=== PATIENT | female | born 1980 | race Caucasian/White ===

== ENCOUNTER 2019-12-19 17:18 | Emergency (ER) | payer OTHER, SELFPAY ==
[2019-12-19 17:30] VITALS: BP 149/85; PULSE 79; RESP 16; TEMP 36.8; O2SAT 100
[2019-12-19] MEDS: LIDO 1%/SOD BICARB 8.4% (10ML) 10 ML SYRINGE INJ (17:35)
[2019-12-19] MEDS: BACITRACIN OINT 0.9 GM PCKT 1 APPLIC TOP (17:36)
[2019-12-19] MEDS: TET,DIPH,PERTUSS(ACELL),VAC/PF 0.5 ML SYRINGE IM (18:48)
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
[2019-12-19 19:10] VITALS: BP 130/80; PULSE 74; RESP 16; O2SAT 97
== END 2019-12-19 19:11 | disposition home or self-care (01) ==
PROVIDERS: Emergency Provider Nurse Practitioner Family; PCP Student in an Organized Health Care Education/Training Program
DX: S01.112A Laceration without foreign body of left eyelid and periocular area, initial encounter (principal); W22.8XXA Striking against or struck by other objects, initial encounter; Y93.53 Activity, golf; Z23 Encounter for immunization
CPT/HCPCS: 12011; 90471; 99283; 99284; 90715

== ENCOUNTER → 2020-12-13 09:06 | Outpatient (CLI) | payer OTHER, SELFPAY ==
[2020-12-13] MEDS: COVID-19 VACC, Ad26(JANSSEN)/PF 0.5 ML IM (09:12)
== END ==
PROVIDERS: PCP Student in an Organized Health Care Education/Training Program; Visit Provider Internal Medicine
DX: Z23 Encounter for immunization (principal)
CPT/HCPCS: 0031A; 91303

== ENCOUNTER → 2021-04-03 09:30 | Outpatient (CLI) | payer OTHER, SELFPAY ==
--- NOTE | 2021-04-03 09:31 | DI.US.S_ITS ---
LIMITED ULTRASOUND OF LEFT BREAST: 04/03/2021 CLINICAL: Palpable left breast lump. Comparison is made to exam dated: 04/03/2021 [facility]. Real-time ultrasound of the left breast 1-2 o'clock region was performed on the area of interest. No discrete cystic or solid mass lesion identified in the area of palpable abnormality. IMPRESSION: NEGATIVE There is no sonographic evidence of malignancy. There are no abnormalities seen in the left breast to correspond with the palpable abnormality at 1-2 o'clock, however, clinical followup is recommended. A screening mammogram is recommended in 2 years at age 42. This exam was interpreted at Station ID: [id number]. Electronically Signed By: Malachi Alexandra M.D. ddashok/:04/03/2021 10:54:23 letter sent: Clinical Evaluation Ultrasound BI-RADS: 1 Negative
--- NOTE | 2021-04-03 09:31 | DI.MG.S_ITS ---
BILATERAL DIGITAL DIAGNOSTIC MAMMOGRAM 3D/2D: 04/03/2021 CLINICAL: Left breast pain and lump. Baseline exam. No prior exams were available for comparison. The tissue of both breasts is heterogeneously dense. This may lower the sensitivity of mammography. No significant masses, calcifications, or other findings are seen in either breast. IMPRESSION: INCOMPLETE: NEEDS ADDITIONAL IMAGING EVALUATION There is no abnormality seen in the left breast to correspond with the palpable abnormality in the upper outer quadrant, however, ultrasound is recommended. Ultrasound will be performed immediately following the current exam. This exam was interpreted at Station ID: [id number]. NOTE: For mammograms, a report in lay terms will be sent to the patient. Approximately 15% of breast malignancies will not be visualized mammographically. In the management of a palpable breast mass, a negative mammogram must not discourage biopsy of a clinically suspicious lesion. Electronically Signed By: Malachi Alexandra M.D. ddp/:04/03/2021 10:05:53 ACR BI-RADS Category 0: Incomplete [id number]
--- NOTE | 2021-04-03 09:31 | DI.US.S_ITS ---
PROCEDURE: US PELVIC COMPLETE INDICATIONS: Pelvic pain TECHNIQUE: Real-time scanning was performed of the pelvic organs, with image documentation. Additional endovaginal scanning was necessary due to incomplete visualization of the adnexal and endometrial structures by transabdominal scanning. COMPARISON: None. FINDINGS: Uterus: Uterus is normal in size at 9.3 x 3.2 x 4.4 cm. The endometrium measures 3.5 mm in combined thickness. Trace endometrial fluid. Ovaries: Right ovary measures 3.4 x 1.9 x 2.5 cm in the left 2.8 x 2.5 x 2.0 cm. 15 mm regressing physiologic cyst associated with the left ovary. Other: No pathologic free abdominal or pelvic fluid. IMPRESSION: 1. Trace endometrial fluid. 2. Physiologic cyst associated with the left ovary. Dictated by: Desmond Correia [facility] Interpreted: Wilfrido Harper MD on 04/03/2021 at 11:27 Transcribed by: SOLA on 04/03/2021 at 11:28 Approved by: Wilfrido Harper M.D. on 04/03/2021 at 14:46
== END ==
PROVIDERS: PCP Student in an Organized Health Care Education/Training Program; Referring Provider Registered Nurse; Visit Provider Student in an Organized Health Care Education/Training Program
DX: N64.4 Mastodynia (principal); N63.21 Unspecified lump in the left breast, upper outer quadrant; R10.2 Pelvic and perineal pain; N83.202 Unspecified ovarian cyst, left side
CPT/HCPCS: 76642; 76830; 76856; 77066; G0279

== ENCOUNTER → 2023-03-29 11:16 | Outpatient (CLI) | payer OTHER, SELFPAY ==
[2023-03-29 12:20] LABS: Alanine Aminotransferase 18 IU/L (<35); Albumin 4.6 g/dL (3.5-5.0); Albumin Globulin Ratio 1.3 (1.0-2.8); Alkaline Phosphatase 45 U/L (38-126); Aspartate Aminotransferase 25 IU/L (14-36); BUN Creatinine Ratio 19.2 (6-22); Blood Urea Nitrogen 15 mg/dL (7-17); Calcium 9.7 mg/dL (8.4-10.2); Carbon Dioxide 25 mmol/L (22-32); Chloride 102 mmol/L (98-107); Estimated Glomerular Filt Rate > 60 mL/min (>60); Globulin 3.6 g/dL (1.7-4.1); Glucose 85 mg/dL (70-100); HEMOLYSIS 15 (0-50); Potassium 4.1 mmol/L (3.4-5.1); Sodium 135 mmol/L (137-145); Total Protein 8.2 g/dL (6.3-8.2)
[2023-03-29 12:39] LABS: Add Manual Diff / Slide Review NO; Basophils Absolute Auto 0 /uL (0-100); Basophils Percent Auto 0.4 % (0-2); Eosinophils Absolute Auto 0 /uL (0-450); Eosinophils Percent Auto 0.1 % (2-4); Hematocrit 41.6 % (36-46); Hemoglobin 14.2 g/dL (12.0-16.0); Lymphocytes Absolute Auto 1800 /uL (1100-4500); Lymphocytes Percent Auto 35.5 % (25-40); Mean Corpuscular Hemoglobin 30.9 PG (26-34); Mean Corpuscular Volume 90.8 fL (80-100); Monocytes Absolute Auto 300 /uL (0-900); Monocytes Percent Auto 6.6 % (3-14); Neutrophils Absolute Auto 3000 /uL (1500-7000); Neutrophils Percent Auto 57.4 % (50-75); Platelet Count 172 X10^3/uL (150-400); Red Blood Cell Count 4.58 X10^6/uL (4.0-5.2); Red Cell Distribution Width 13.9 % (11.6-14.8); White Blood Cell Count 5.2 X10^3/uL (4.5-11.0)
[2023-03-29 12:48] LABS: Thyroid Stimulating Hormone 1.84 uIU/mL (0.47-4.68)
== END ==
PROVIDERS: PCP Family Medicine; Referring Provider Family Medicine; Visit Provider Family Medicine
DX: L71.9 Rosacea, unspecified (principal); Z13.0 Encounter for screening for diseases of the blood and blood-forming organs and certain disorders involving the immune mechanism; Z13.29 Encounter for screening for other suspected endocrine disorder
CPT/HCPCS: 36415; 80053; 84443; 85025

== ENCOUNTER → 2023-06-23 09:34 | Outpatient (CLI) | payer OTHER, SELFPAY ==
--- NOTE | 2023-06-23 09:36 | DI.US.S_ITS ---
LIMITED ULTRASOUND OF LEFT BREAST AND AXILLA: 06/23/2023 CLINICAL: Focal left breast pain. Comparison is made to exams dated: 06/23/2023 mammogram, 04/03/2021 ultrasound, and 04/03/2021 mammogram - [facility]. Color flow and real-time ultrasound of the left breast 3-4 o'clock, and axilla regions were performed. Wray scale images of the real-time examination were reviewed. There is a 0.9 cm x 0.9 cm x 0.7 cm oval cyst with a septated internal wall in the left breast at 3 o'clock posterior depth 5 cm from the nipple. This oval cyst is anechoic and hypoechoic. This correlates as an incidental finding and to the reported pain. Color flow imaging demonstrates that there is an adjacent vascularity. No significant abnormalities were seen sonographically in the left axilla. IMPRESSION: PROBABLY BENIGN The 0.9 cm complicated cyst in the left breast is probably benign. A follow-up ultrasound in 6 months is recommended to demonstrate stability. No enlarged left axillary lymph nodes. Exam findings were conveyed to the patient. This exam was interpreted at Station ID: [id number]. Electronically Signed By: Abhilash Flores M.D. slc/:06/23/2023 11:20:56 letter sent: Followup Recommended Ultrasound BI-RADS: 3 Probably benign
--- NOTE | 2023-06-23 09:36 | DI.MG.S_ITS ---
BILATERAL DIGITAL DIAGNOSTIC MAMMOGRAM 3D/2D: 06/23/2023 CLINICAL: Left breast pain. Comparison is made to exam dated: 04/03/2021 mammogram - [facility]. Both breasts are heterogeneously dense, which may obscure small masses (category c / 51-75% glandular tissue). No significant masses, calcifications, or other findings are seen in either breast. IMPRESSION: INCOMPLETE: NEEDS ADDITIONAL IMAGING EVALUATION No mammographic evidence of malignancy. A targeted ultrasound is recommended for left breast pain and will immediately follow. Based on Tyrer-Cuzick model (a risk assessment model), the patient's lifetime risk is 21.5% and her 10 year risk is 3.1%. If a patient has an elevated risk, a more comprehensive evaluation should be considered and/or a referral to a genetic counselor. The [place] [employer], [employer], and NCCN Guidelines advise the consideration of Breast MRI as an adjunct to screening mammography in patients whose Lifetime risk to develop breast cancer is 20% or higher. This exam was interpreted at Station ID: [id number]. NOTE: For mammograms, a report in lay terms will be sent to the patient. Approximately 15% of breast malignancies will not be visualized mammographically. In the management of a palpable breast mass, a negative mammogram must not discourage biopsy of a clinically suspicious lesion. Electronically Signed By: Abhilash Flores M.D. slc/:06/23/2023 10:15:07 ACR BI-RADS Category 0: Incomplete 3340F
== END ==
PROVIDERS: PCP Family Medicine; Referring Provider Family Medicine; Visit Provider Family Medicine
DX: Z12.39 Encounter for other screening for malignant neoplasm of breast (principal); N64.4 Mastodynia; N60.02 Solitary cyst of left breast
CPT/HCPCS: 76642; 77066; G0279

== ENCOUNTER → 2023-12-15 10:08 | Outpatient (CLI) | payer OTHER, SELFPAY ==
--- NOTE | 2023-12-15 10:08 | DI.US.S_ITS ---
LIMITED ULTRASOUND OF LEFT BREAST: 12/15/2023 CLINICAL: 6 month follow-up of cysts. Comparison is made to exams dated: 06/23/2023 ultrasound, 06/23/2023 mammogram, 04/03/2021 ultrasound, and 04/03/2021 mammogram - [facility]. Ultrasound of the left breast 3 o'clock region was performed on the area of interest. There is an irregular cyst in the left breast at 3 o'clock posterior depth. This irregular cyst is anechoic and hypoechoic. This abnormality is decreased in size. IMPRESSION: PROBABLY BENIGN The irregular cyst in the left breast is probably benign. A follow-up ultrasound in 6 months is recommended to demonstrate stability. This exam was interpreted at Station ID: [id number]. SUMMARY: The patient will be due for her bilateral mammogram at this time. Electronically Signed By: Kandice Alfaro M.D. lk/:12/15/2023 11:00:44 letter sent: Followup Recommended Ultrasound BI-RADS: 3 Probably benign
== END ==
LOC: US 10:08
PROVIDERS: PCP Family Medicine; Referring Provider Family Medicine; Visit Provider Family Medicine
DX: N64.4 Mastodynia (principal); R92.8 Other abnormal and inconclusive findings on diagnostic imaging of breast; N60.02 Solitary cyst of left breast
CPT/HCPCS: 76642

== ENCOUNTER → 2024-10-30 10:19 | Outpatient (CLI) | payer OTHER, SELFPAY ==
--- NOTE | 2024-10-30 10:20 | DI.MG.S_ITS ---
BILATERAL DIGITAL DIAGNOSTIC MAMMOGRAM 3D/2D: 10/30/2024 CLINICAL: Late short follow up, due bilateral. Comparison is made to exams dated: 06/23/2023 mammogram and 04/03/2021 mammogram - [facility]. The breasts are heterogeneously dense, which may obscure small masses (category c / 51-75% glandular tissue). There is a developing cluster of punctate calcifications in the left breast at 9 o'clock posterior depth. This is increased in number. No other significant masses, calcifications, or other findings are seen in either breast. Previously seen irregular cyst at a middle depth 3:00 position is not seen on mammogram. Mammograms are otherwise stable. IMPRESSION: INCOMPLETE: NEED ADDITIONAL IMAGING EVALUATION The developing cluster of punctate calcifications in the left breast is probably benign. 6 month follow up mammogram recomended to determine stability. There is no abnormality seen in the left breast to correspond with the ultrasound finding at 3 o'clock. Ultrasound is recommended to document resolution. This was performed immediately following this exam. Right breast mammogram is stable. Based on Tyrer-Cuzick model (a risk assessment model), the patient's lifetime risk is 21.1% and her 10 year risk is 3.3%. If a patient has an elevated risk, a more comprehensive evaluation should be considered and/or a referral to a genetic counselor. The [place] [employer], [employer], and NCCN Guidelines advise the consideration of Breast MRI as an adjunct to screening mammography in patients whose Lifetime risk to develop breast cancer is 20% or higher. This exam was interpreted at Station ID: [id number]. NOTE: For mammograms, a report in lay terms will be sent to the patient. Approximately 15% of breast malignancies will not be visualized mammographically. In the management of a palpable breast mass, a negative mammogram must not discourage biopsy of a clinically suspicious lesion. Electronically Signed By: Leticia landon/:10/30/2024 11:27:46 letter sent: Additional Imaging Needed ACR BI-RADS Category 0: Incomplete: Need Additional Imaging Evaluation
--- NOTE | 2024-10-30 10:20 | DI.US.S_ITS ---
LIMITED ULTRASOUND OF LEFT BREAST: 10/30/2024 CLINICAL: Late 6 month follow-up of cysts. Comparison is made to exams dated: 10/30/2024 mammogram, 12/15/2023 ultrasound, 06/23/2023 ultrasound, and 06/23/2023 mammogram - [facility]. Real-time ultrasound of the left breast 3 o'clock region was performed. Wray scale images of the real-time examination were reviewed. No significant abnormalities were seen sonographically in the left breast. Resolution of previously seen irregular cyst at 3:00. IMPRESSION: PROBABLY BENIGN Resolution of ultrasound-only 3:00 finding in the left breast. A follow-up left mammogram in 6 months is recommended to demonstrate stability of mammographic calcifications in the 9:00 left breast. Findings and recommendations were conveyed to the patient at time of exam. This exam was interpreted at Station ID: [id number]. Electronically Signed By: Leticia landon/:10/30/2024 11:29:20 letter sent: Followup Recommended ACR BI-RADS Category 3: Probably Benign
== END ==
PROVIDERS: PCP Family Medicine; Referring Provider Family Medicine; Visit Provider Family Medicine
DX: R92.8 Other abnormal and inconclusive findings on diagnostic imaging of breast (principal); N60.02 Solitary cyst of left breast; R92.333 Mammographic heterogeneous density, bilateral breasts; R92.1 Mammographic calcification found on diagnostic imaging of breast
CPT/HCPCS: 76642; 77066; G0279

== ENCOUNTER → 2024-11-29 14:01 | Outpatient (CLI) | payer OTHER, SELFPAY ==
[2024-11-29 14:51] LABS: Add Manual Diff / Slide Review NO; Basophils Absolute Auto 0 /uL (0-100); Basophils Percent Auto 0.4 % (0-2); Eosinophils Absolute Auto 0 /uL (0-450); Hematocrit 43.6 % (36-46); Hemoglobin 14.4 g/dL (12.0-16.0); Lymphocytes Absolute Auto 1900 /uL (1100-4500); Mean Corpuscular HGB Conc 33.1 % (30-36); Mean Corpuscular Hemoglobin 31.2 PG (26-34); Mean Corpuscular Volume 94.1 fL (80-100); Monocytes Absolute Auto 400 /uL (0-900); Monocytes Percent Auto 4.2 % (3-14); Neutrophils Absolute Auto 6300 /uL (1500-7000); Neutrophils Percent Auto 73.4 % (50-75); Platelet Count 202 X10^3/uL (150-400); Red Blood Cell Count 4.63 X10^6/uL (4.0-5.2); Red Cell Distribution Width 13.9 % (11.6-14.8); White Blood Cell Count 8.7 X10^3/uL (4.5-11.0)
[2024-11-29 15:43] LABS: Prolactin 21.1 ng/mL (3.0-18.6)
[2024-11-29 15:44] LABS: Follicle Stimulating Hormone 5.09 mIU/mL
[2024-11-29 15:56] LABS: TSH w/ Reflex to FT4 1.44 uIU/mL (0.47-4.68)
== END ==
LOC: LAB 14:02
PROVIDERS: PCP Family Medicine; Referring Provider Family Medicine; Visit Provider Family Medicine
DX: N64.3 Galactorrhea not associated with childbirth (principal)
CPT/HCPCS: 36415; 83001; 83002; 84146; 84443; 85025

== ENCOUNTER → 2024-12-19 10:17 | Outpatient (CLI) | payer OTHER, SELFPAY ==
--- NOTE | 2024-12-19 10:18 | DI.CT.S_ITS ---
PROCEDURE: CT HEAD/BRAIN WO/W CON INDICATIONS: Please evaluate for pituitary adenoma/prolactinoma TECHNIQUE: Precontrast 4.5 mm thick sections acquired from the foramen magnum to the vertex. After the administration of intravenous contrast, 5 mm thick sections acquired through the brain again, followed by 1 mm thick coronal and sagittal reformats through the pituitary fossa. COMPARISON: None. FINDINGS: Image quality: Streak artifact can be seen through the skull base. Sella: The sella turcica demonstrates normal size. The pituitary tissue is largely flattened along the floor of the sella turcica, as on series 5, image 17. No masses or abnormal enhancement can be seen. There is no mass effect upon the optic chiasm or the ventral forebrain. CSF spaces: Ventricles are symmetric in size and shape. Basal cisterns are patent. No extra-axial fluid collections. Brain: No midline shift. No intracranial bleeds or masses. Wray-white matter interface appears intact throughout. Skull and face: Calvarium and facial bones appears intact, without suspicious lesions. Orbits appear normal. Sinuses: Sinuses and mastoids appear clear. IMPRESSION: To the limits of CT, no masses or other pituitary abnormality can be seen. If there is remaining strong clinical concern for a pituitary mass please consider a dedicated pituitary protocol MRI (without and with contrast) for further evaluation (assuming that there is no contraindication). Dictated by: Harman Cuellar M.D. on 12/19/2024 at 12:28 Approved by: Harman Cuellar M.D. on 12/19/2024 at 12:30
== END ==
PROVIDERS: PCP Family Medicine; Referring Provider Family Medicine; Visit Provider Family Medicine
DX: R79.89 Other specified abnormal findings of blood chemistry (principal)
CPT/HCPCS: 70470; Q9967

== ENCOUNTER → 2024-12-25 15:47 | Outpatient (CLI) | payer OTHER, SELFPAY ==
--- NOTE | 2024-12-25 15:48 | DI.MRI.S_ITS ---
MR breast BI wo/w con: 12/25/2024. BI-RADS: 0 CLINICAL: 44-year old female for bilateral diagnostic breast MRI. No personal or first-degree family history of breast cancer. PRIOR EXAMS: 12/15/2023, 06/23/2023, 04/03/2021. MRI TECHNIQUE: Bilateral breast MRI was performed on a 1.5 Deborah magnet using a dedicated breast coil with mild compression. Axial T1 and T2 STIR sequences were obtained. Dynamic contrast enhanced VIBRANT fat-suppressed sequences were obtained. Delayed sagittal high resolution or sagittal reconstructed isotropic sequence was also obtained. Subtraction images and maximum intensity projection images were obtained. The study was evaluated using [employer] software. IV Contrast: ProHance. FIBROGLANDULAR TISSUE Bilateral: C. Heterogeneous fibroglandular tissue. BACKGROUND PARENCHYMAL ENHANCEMENT Bilateral: Marked symmetrical background parenchymal enhancement. BREAST FINDINGS Right: Lower Outer at 7:00, 4 cm from nipple, Anterior depth, measuring 0.5 cm: There is an enhancing focus possibly representing a lymph node with kinetic enhancement curve showing fast initial phase and washout pattern on delayed phase. On non-contrast sequences this focus shows intermediate signal intensity on T1-weighted sequences and high signal intensity on STIR/T2-weighted sequences. Left: Upper Outer at 2:00, 4 cm from nipple, Middle depth, measuring 0.5 cm: There is an enhancing focus possibly representing a lymph node with kinetic enhancement curve showing fast initial phase and washout pattern on delayed phase. Bilateral No abnormal lymph nodes are seen in the axilla. Benign-appearing cysts noted. IMPRESSION: Right (Focus): Lower Outer at 7:00, 4 cm from nipple, Anterior depth, measuring 0.5 cm * Incomplete - Needs additional imaging evaluation. Left (Focus): Upper Outer at 2:00, 4 cm from nipple, Middle depth, measuring 0.5 cm * Incomplete - Needs additional imaging evaluation. RECOMMENDATIONS Right: Lower Outer at 7:00, 4 cm from nipple, Anterior depth * Further evaluation with diagnostic ultrasound. * Second-look ultrasound. Further management to be determined based on ultrasound appearance. Left: Upper Outer at 2:00, 4 cm from nipple, Middle depth * Further evaluation with diagnostic ultrasound. * Second-look ultrasound. Further management to be determined based on ultrasound appearance. OVERALL ASSESSMENT CATEGORY BI-RADS-0: Incomplete - Need Additional Imaging Evaluation. ELECTRONICALLY SIGNED: Josep Montilla M.D. on 12/27/2024 at 01:35:27 PM PT Interpreting Station ID: [id number]
== END ==
PROVIDERS: PCP Family Medicine; Referring Provider Physician Assistant; Visit Provider Physician Assistant
DX: N60.02 Solitary cyst of left breast (principal); R92.333 Mammographic heterogeneous density, bilateral breasts; Z80.3 Family history of malignant neoplasm of breast; R92.8 Other abnormal and inconclusive findings on diagnostic imaging of breast
CPT/HCPCS: 77049; A9579

== ENCOUNTER → 2025-01-12 07:37 | Outpatient (CLI) | payer OTHER, SELFPAY ==
--- NOTE | 2025-01-12 07:37 | DI.US.S_ITS ---
US breast BI limited: 01/12/2025. BI-RADS: 4A CLINICAL: 44-year old female for bilateral diagnostic breast ultrasound that is a follow-up to diagnostic breast MRI on 12/25/2024. Tyrer-Cuzick lifetime risk of 11.3%. No personal or first-degree family history of breast cancer. PRIOR EXAMS Breast MRI(s): 12/25/2024. Five Other Exams on 12/15/2023, 06/23/2023, 04/03/2021. ULTRASOUND TECHNIQUE Real-time lopes scale and color doppler imaging of the area of clinical interest was performed with image documentation. Right targeted breast ultrasound of the area of clinical interest and the axilla was performed with image documentation. Left targeted breast ultrasound of the area of clinical interest and the axilla was performed with image documentation. ULTRASOUND FINDINGS Right: Lower Outer at 7:30, 2.5 cm from nipple, measuring 1 x 0.5 x 0.6 cm: Possibly a fibroadenoma. Correlating with MRI findings there is an indistinct, hypoechoic mass. Doppler shows no vascularity. No axillary adenopathy. Right: Upper Outer at 10:00, 5.0 cm from nipple, measuring 1.3 x 0.5 x 0.9 cm: There is a simple anechoic cyst present. Right: Upper Outer at 10:00, 5.0 cm from nipple, measuring 1.3 x 0.6 x 1 cm: There is a simple anechoic cyst present. Left: Outer at 3:00, 4.0 cm from nipple, measuring 0.7 x 0.3 x 0.4 cm: Correlating with MRI findings there is an indistinct mass with complex echo pattern. Doppler shows single vessel vascularity. No axillary adenopathy. IMPRESSION: Right (Mass): Lower Outer at 7:30, 2.5 cm from nipple, measuring 1 x 0.5 x 0.6 cm * Low Suspicion for Malignancy. Left (Mass): Outer at 3:00, 4.0 cm from nipple, measuring 0.7 x 0.3 x 0.4 cm * Low Suspicion for Malignancy. RECOMMENDATIONS Right: Lower Outer at 7:30, 2.5 cm from nipple * Ultrasound-guided biopsy for further evaluation. Left: Outer at 3:00, 4.0 cm from nipple * Ultrasound-guided biopsy for further evaluation. Left * Three month followup with diagnostic mammography (Previously recommended follow-up mammogram for calcifications seen in the left breast 9:00 region posterior depth.). COMMENTS: The above findings and recommendations were discussed with the patient at the time of the exam by Dr. Cavanaugh. OVERALL ASSESSMENT CATEGORY BI-RADS-4: Suspicious. ELECTRONICALLY SIGNED: Abhilash Flores M.D. on 01/12/2025 at 12:07:38 PM PT Interpreting Station ID: [id number]
== END ==
LOC: US 07:37
PROVIDERS: PCP Family Medicine; Referring Provider Family Medicine; Visit Provider Family Medicine
DX: N63.13 Unspecified lump in the right breast, lower outer quadrant (principal); N63.21 Unspecified lump in the left breast, upper outer quadrant; N60.01 Solitary cyst of right breast
CPT/HCPCS: 76642

== ENCOUNTER → 2025-01-26 13:19 | Outpatient (CLI) | payer OTHER, SELFPAY ==
--- NOTE | 2025-01-26 | PATH_ITS ---
[facility] Accession Number: [id number] No. of containers..01 Tissue . 01 Material submitted: . breast - LEFT BREAST 3:00 4CMFN . 01 Clinical history: . 4CMFN . 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 [facility] 01/31/2025 1036 Local . 01 Comment: This case was also reviewed by Dr. Koki Heaton, who agrees with the interpretation. . 01 Electronically signed: . Annita Reddy MD, Pathologist NPI- [id number] . 01 Gross description: . Received in formalin, labeled with two patient identifiers and left breast 3 o'clock, 4 cm from the nipple, and consists of three fibrofatty soft tissue cores ranging from 0.6 cm in length by 0.2 cm in diameter up to 1.5 cm in length by 0.1 cm in diameter. The specimens are submitted in cassette A1. Total fixation time: The specimen was placed in formalin estimated at 9:00 a.m. on 01/26/2025 for a total fixation time of 53 hours. ([id number]) /FRR 01/27/2025 1013 Local . 01 Pathologist provided ICD-10: N63.21, N63.13 . 01 CPT . 719234 Specimen Comment: A courtesy copy of this report has been sent to [phone] Performed at: [address] [address], [place], [place] [id number] MD Malachi Padilla MD Phone: [phone]
--- NOTE | 2025-01-26 | DI.US.S_ITS ---
US bx breast perc w vac device: 01/26/2025. Rad-Path Correlation: Concordant Pathology Classification: Benign SEE ADDENDUM AT END OF THIS REPORT SEE UPDATED PATHOLOGY AT END OF THIS REPORT CLINICAL: 44-year old female for left procedure that resulted from diagnostic breast ultrasound on 01/12/2025. Tyrer-Cuzick lifetime risk of 15.9%. No personal or first-degree family history of breast cancer. Current reported family history of breast cancer: paternal aunt. CONSENT Risks including but not limited to bleeding and infection, benefits and alternatives were discussed with the patient. The patients agreed to the procedure, reported no allergy to local anesthesia and signed the consent form. ROUTINE Left: Patient positioned in the sitting position, prepped and draped in the usual manner using sterile technique. TECHNIQUE Left: Outer at 3:00, 4.0 cm from nipple: Procedure: Ultrasound-guided vacuum-assisted biopsy of a mass. Device: Vacuum-assisted biopsy instrument. Anesthesia: Local anesthesia obtained using 5 ml 1%-lidocaine buffered with sodium bicarbonate. Secondary local anesthesia obtained using 5 ml 1%-lidocaine with epinephrine. Skin Entry: Incision with #11 blade. Passes: 3. Post-procedure imaging: Post-procedure mammogram confirms in target location. Conclusion: Ultrasound-guided Vacuum-assisted biopsy with post-procedure mammogram, Left: Outer at 3:00, 4.0 cm from nipple COMPLICATIONS: No complications were encountered while the patient was in our department. DISPOSITION The patient left our department in good condition with aftercare instructions and urged to contact us should any problem arise. SUMMARY Left: Outer at 3:00, 4.0 cm from nipple: Ultrasound-guided vacuum- assisted biopsy of a mass. SEE UPDATED RECOMMENDATIONS IN ADDENDUM AT END OF THIS REPORT ELECTRONICALLY SIGNED: Darrius Peña M.D. on 02/02/2025 at 12:40:44 PM PT ADDENDA: * ADDENDUM: This addendum is to reflect Radiology-Pathology correlation as follows: RAD-PATH CORRELATION: Concordant. Rad-Path Correlation changed from N/A. ELECTRONICALLY SIGNED: Suri Irvin M.D. on 02/05/2025 at 11:37:22 AM. UPDATED PATHOLOGY Left: Outer at 3:00, 4.0 cm from nipple: Benign Classification: Benign fibroepithelial lesion with features of fibrocystic change consisting of cystic dilatation of terminal ductules, stromal fibrosis, and apocrine metaplasia. Radiologist-Pathologist Correlation: Concordant. UPDATED RECOMMENDATIONS Left * Patient is due for left breast diagnostic mammogram in February 2025 for follow up of probably benign calcifications in the left breast. Interpreting Station ID: [id number]
--- NOTE | 2025-01-26 | PATH_ITS ---
[facility] Accession Number: [id number] No. of containers..01 Tissue . 01 Material submitted: . breast - RIGHT BREAST 7:30 2.5 CMFN . 01 Clinical history: . 2.5 CMFN . 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 Negative for atypia. No intact capsule present for evaluation. MRV 02/01/2025 1218 Local . 01 Comment: This case was also reviewed by Dr. Koki Heaton, who agrees with the interpretation. . 01 Electronically signed: . Annita Reddy MD, Pathologist NPI- [id number] . 01 Gross description: . The specimen is received in formalin, labeled with two patient identifiers and right breast 7:30, 2.5 cm from the nipple, and consists of a 1.5 x 1.4 x 0.3 cm aggregate of yellow, hemorrhagic, fibrofatty soft tissue cores, which are entirely submitted in cassette A1. Fixation time: The specimen was placed in formalin estimated at 9:00 a.m. on 01/26/2025 for a total fixation time of 53 hours. ([id number]) /R 01/27/2025 1023 Local . 01 Microscopic: . An immunohistochemistry panel is performed to further evaluate the cells of interest. The control stains show appropriate reactivity. . RESULTS: Block: A1 . P63: Present within papillary lesion; no intact capsule present for assessment. P63: Present in separate region of interest, mitigates against invasive tumor. . ER: Variable, weak. . Myosin: Present within papillary lesion, no intact capsule identified for evaluation. Myosin: Present in separate region of interest, mitigates against invasive tumor. . ROSEANNA: Present in region of interest. E-cadherin: Positive in region of interest, consistent with epithelial cells of ductal differentiation. GATA3: Focal positivity in region of interest, consistent with breast epithelial cells. . The presence of myosin and p63 within the papillary lesion mitigates against an intraductal papillary carcinoma. The focus of compressed glands is positive for p63 and myosin, consistent with focal adenosis. No lesional capsule is identified. . * This test was developed and the performance characteristics were validated by [employer]. It has not been cleared or approved by the U.S. Food and Drug Administration. . 01 Pathologist provided ICD-10: N63.21, N63.13 . 01 CPT . 960357, 162762, 044322, N69527, A20588 Specimen Comment: A courtesy copy of this report has been sent to [phone] Performed at: [address] [id number] MD Malachi Padilla MD Phone: [phone]
--- NOTE | 2025-01-26 13:20 | DI.US.S_ITS ---
US bx breast perc w vac device: 01/26/2025. Rad-Path Correlation: Concordant Pathology Classification: Benign SEE ADDENDUM AT END OF THIS REPORT SEE UPDATED PATHOLOGY AT END OF THIS REPORT CLINICAL: 44-year old female for right procedure that resulted from diagnostic breast ultrasound on 01/12/2025. Tyrer-Cuzick lifetime risk of 19.1%. No personal or first-degree family history of breast cancer. Current reported family history of breast cancer: paternal aunt. CONSENT Risks including but not limited to bleeding and infection, benefits and alternatives were discussed with the patient. The patients agreed to the procedure, reported no allergy to local anesthesia and signed the consent form. ROUTINE Right: Patient positioned in the sitting position, prepped and draped in the usual manner using sterile technique. TECHNIQUE Right Breast: Lower Outer at 7:30, 2.5 cm from nipple: Procedure: Ultrasound-guided vacuum-assisted biopsy of a mass. Device: Vacuum-assisted biopsy instrument. Anesthesia: Local anesthesia obtained using 5 ml 1%-lidocaine buffered with sodium bicarbonate. Secondary local anesthesia obtained using 5 ml 1%-lidocaine with epinephrine. Skin Entry: Incision with #11 blade. Passes: 4. Post-procedure imaging: Post-procedure mammogram confirms in target location. Rad/Path Correlation: Pending receipt of pathology report. Conclusion: Ultrasound-guided Vacuum-assisted biopsy with post-procedure mammogram, Right Breast: Lower Outer at 7:30, 2.5 cm from nipple COMPLICATIONS: No complications were encountered while the patient was in our department. DISPOSITION The patient left our department in good condition with aftercare instructions and urged to contact us should any problem arise. SUMMARY Right Breast: Lower Outer at 7:30, 2.5 cm from nipple: Ultrasound-guided vacuum-assisted biopsy of a mass. PATHOLOGY Right Breast: Lower Outer at 7:30, 2.5 cm from nipple: Radiologist-Pathologist Correlation: Pending receipt of pathology report. SEE UPDATED RECOMMENDATIONS IN ADDENDUM AT END OF THIS REPORT ELECTRONICALLY SIGNED: Darrius Peña M.D. on 02/02/2025 at 12:44:56 PM PT ADDENDA: * ADDENDUM: This addendum is to reflect Radiology-Pathology correlation as follows: RAD-PATH CORRELATION: Concordant. Rad-Path Correlation changed from Pending. ELECTRONICALLY SIGNED: Suri Irvin M.D. on 02/05/2025 at 11:34:50 AM. UPDATED PATHOLOGY Right Breast: Lower Outer at 7:30, 2.5 cm from nipple: Benign Classification: Papilloma without atypia. Pathology reported as follows: Fragments of papillary lesion, favor papilloma by immunohistochemistry studies. Negative for atypia. No intact capsule present for evaluation. Radiologist-Pathologist Correlation: Concordant. UPDATED RECOMMENDATIONS Left * Patient is due for left breast diagnostic mammogram in February 2025 for follow up of probably benign calcifications in the left breast. Interpreting Station ID: [id number]
--- NOTE | 2025-01-26 13:21 | DI.MG.S_ITS ---
MM diagnostic mammo [id number]: 01/26/2025. BI-RADS: None CLINICAL: 44-year old female for left diagnostic mammogram that is a follow-up to diagnostic breast ultrasound on 01/12/2025. Tyrer-Cuzick lifetime risk of 19.1%. No personal or first-degree family history of breast cancer. Current reported family history of breast cancer: paternal aunt. MAMMOGRAPHY TECHNIQUE: 2D and 3D (tomosynthesis) digital mammographic views obtained, with additional images as needed for full coverage. Current study was also evaluated with a Computer Aided Detection (CAD) system. DENSITY Left: C. The breasts are heterogeneously dense, which may obscure small masses. MAMMOGRAPHY FINDINGS Left: Outer at 3:00, 4.0 cm from nipple: There is an (Unspecified) biopsy marker in targeted location. IMPRESSION: Left * Biopsy marker present. RECOMMENDATIONS Left * Previous exam(s) should be sought for comparison and, if obtained, an addendum issued. OVERALL ASSESSMENT CATEGORY BI-RADS None: This exam requires no BI-RADS. ELECTRONICALLY SIGNED: Darrius Peña M.D. on 02/02/2025 at 12:42:24 PM PT Interpreting Station ID: [id number]
--- NOTE | 2025-01-26 13:21 | DI.MG.S_ITS ---
MM diagnostic mammo [id number]: 01/26/2025. BI-RADS: None CLINICAL: 44-year old female for right diagnostic mammogram that is a follow-up to diagnostic breast MRI on 12/25/2024. Mammogram is performed after US guided biopsy to assess marker location. Tyrer-Cuzick lifetime risk of 19.1%. No personal or first-degree family history of breast cancer. Current reported family history of breast cancer: paternal aunt. PRIOR EXAMS Breast Ultrasound(s): 01/12/2025. Breast MRI(s): 12/25/2024. Five Other Exams on 12/15/2023, 06/23/2023, 04/03/2021. MAMMOGRAPHY TECHNIQUE: 2D and 3D (tomosynthesis) digital mammographic views obtained, with additional images as needed for full coverage. Current study was also evaluated with a Computer Aided Detection (CAD) system. DENSITY Right: C. The breasts are heterogeneously dense, which may obscure small masses. MAMMOGRAPHY FINDINGS Right: There is an (Unspecified) biopsy marker in targeted location. IMPRESSION: Right * Biopsy marker present. OVERALL ASSESSMENT CATEGORY BI-RADS None: This exam requires no BI-RADS. ELECTRONICALLY SIGNED: Darrius Pñea M.D. on 02/02/2025 at 12:45:31 PM PT Interpreting Station ID: [id number]
== END ==
PROVIDERS: PCP Family Medicine; Referring Provider Family Medicine; Visit Provider Family Medicine
DX: D24.1 Benign neoplasm of right breast (principal); N60.82 Other benign mammary dysplasias of left breast; N60.32 Fibrosclerosis of left breast; N63.21 Unspecified lump in the left breast, upper outer quadrant; N63.13 Unspecified lump in the right breast, lower outer quadrant; R92.333 Mammographic heterogeneous density, bilateral breasts; Z80.3 Family history of malignant neoplasm of breast
CPT/HCPCS: 19083; 77065

== ENCOUNTER → 2025-05-15 13:14 | Outpatient (CLI) | payer OTHER, SELFPAY ==
--- NOTE | 2025-05-15 13:15 | DI.MG.S_ITS ---
MM diagnostic mammo unilat LT: 05/15/2025. BI-RADS: 3 CLINICAL: 45-year old female for left diagnostic mammogram. The patient presents for a follow-up. Tyrer-Cuzick lifetime risk of 19.1%. No personal or first-degree family history of breast cancer. Current reported family history of breast cancer: paternal aunt. The patient had prior bilateral breast biopsies. PRIOR EXAMS 01/26/2025, 01/12/2025, 12/25/2024, 10/30/2024, 12/15/2023, 06/23/2023, 04/03/2021. MAMMOGRAPHY TECHNIQUE: 2D and 3D (tomosynthesis) digital mammographic views obtained, with additional images as needed for full coverage. Current study was also evaluated with a Computer Aided Detection (CAD) system. DENSITY Left: C. The breast is heterogeneously dense, which may obscure small masses. MAMMOGRAPHY FINDINGS Left: Inner at 9:00, Middle depth, measuring 0.3cm: Correlating with prior imaging concern there are grouped punctate calcifications that are unchanged in size and appearance. These calcifications were present since the 06/23/2023 study. There are similar appearing grouped faint punctate/amorphous calcifications in the left breast. IMPRESSION: Left (Calcification): Inner at 9:00, Middle depth, measuring 0.3cm * Probably Benign. RECOMMENDATIONS Left: Inner at 9:00, Middle depth * Six month followup with diagnostic mammography. When the patient returns for short-term unilateral followup, a mammogram for the contralateral breast will also be due. COMMENTS: Findings and recommendations were conveyed to the patient during today's evaluation. OVERALL ASSESSMENT CATEGORY BI-RADS-3: Probably Benign. ELECTRONICALLY SIGNED: [place] M.D. on 05/15/2025 at 08:39:20 PM PT Interpreting Station ID: [id number]
== END ==
LOC: MAMMO 13:15
PROVIDERS: PCP Family Medicine; Referring Provider Family Medicine; Visit Provider Family Medicine
DX: R92.8 Other abnormal and inconclusive findings on diagnostic imaging of breast (principal); R92.1 Mammographic calcification found on diagnostic imaging of breast; Z80.3 Family history of malignant neoplasm of breast; R92.332 Mammographic heterogeneous density, left breast
CPT/HCPCS: 77065; G0279

== ENCOUNTER → 2025-07-09 16:18 | Outpatient (CLI) | payer OTHER, SELFPAY ==
[2025-07-09 17:25] LABS: Hemoglobin A1C% w Est Avg Glu 5.0 % (4.0-6.0)
[2025-07-18 09:41] LABS: Percent Free Testosterone 1.68 % (0.50-2.80)
== END ==
PROVIDERS: PCP Family Medicine; Referring Provider Emergency Medicine; Visit Provider Emergency Medicine
DX: F52.0 Hypoactive sexual desire disorder (principal); N95.1 Menopausal and female climacteric states; Z13.1 Encounter for screening for diabetes mellitus
CPT/HCPCS: 36415; 83036; 84270; 84402; 84403

== ENCOUNTER → 2025-07-25 14:53 | Outpatient (CLI) | payer OTHER, SELFPAY ==
--- NOTE | 2025-07-25 14:54 | DI.RAD.S_ITS ---
PROCEDURE: XR DEXA AXIAL SKELETON INDICATIONS: Osteoporosis screening COMPARISON: None. FINDINGS: Lumbar Spine: Bone mineral density 1.062 g/cm2, T score 0.5. Left Femoral Neck: Bone mineral density 0.770 g/cm2, T score -0.3. Left Hip: Bone mineral density 0.880 g/cm2, T score -0.3. Fracture Risk Calculation (when applicable): 10-year fracture risk of a major osteoporotic fracture 2.3 percent and of a hip fracture 0.1 percent. (T score greater or equal to -1.0 to: NORMAL) (T score from -1.1 to -2.4: OSTEOPENIA) (T score less than or equal to -2.5: OSTEOPOROSIS) IMPRESSION: Normal bone mineral density. Follow-up guidelines as follows: Osteoporosis: Consider a repeat DEXA and Vertebral Fracture Assessment (VFA) exam in 2 years or sooner if medically necessary, to reassess this patient's status. Osteopenia: Consider a repeat DEXA in 2-3 years to reassess this patient's status, or if there is a new clinical indication. Normal: Consider a repeat DEXA in 5 years or sooner, or if there is a new clinical indication. All treatment decisions require clinical judgment and consideration of individual patient factors, including patient preferences, comorbidities, previous drug use, risk factors not captured in the FRAX model (e.g., frailty, falls, vitamin D deficiency, increased bone turnover, interval significant decline in bone density ) and possible under- or over-estimation of fracture risk by FRAX. In addition, the NOF Guide recommends that FDA-approved medical therapies be considered in postmenopausal women and men age >= 50 years with a: * Hip or vertebral (clinical or morphometric) fracture * T-score of <=-2.5 at the spine or hip * Ten-year fracture probability by FRAX of >= 3% for hip fracture or >=20% for major osteoporotic fracture. Dictated by: Gera Kim M.D. on 07/26/2025 at 19:38 Approved by: Gera Kim M.D. on 07/26/2025 at 19:39
== END ==
LOC: RAD 14:53
PROVIDERS: PCP Family Medicine; Referring Provider Family Medicine; Visit Provider Emergency Medicine
DX: N95.1 Menopausal and female climacteric states (principal)
CPT/HCPCS: 77080

== ENCOUNTER 2025-08-25 14:09 | Emergency (ER) | payer OTHER, SELFPAY ==
[2025-08-25 14:14] VITALS: BP 140/94; PULSE 89; RESP 16; TEMP 37.1; O2SAT 100; BMI 25.9
--- NOTE | 2025-08-25 14:24 | ED.GIBLEED ---
HPI - GI Bleed <Oly Jordan PA-C - Last Filed: 08/25/25 18:16> General Chief complaint: GI Bleed Stated complaint: Black stool, dizzyness and nausea Time Seen by Provider: 08/25/25 14:24 History of Present Illness HPI Narrative: Ms. Back is a pleasant 45 year old female with no reported past medical history who presents to the emergency department for concern of a GI bleed. Patient states for the last 4 months she has noticed darker stools, sometimes black, sometimes dark, quite muddy. She goes about 1 to 2 times a day which is more often than usual for her. She talked with a friend who is a healthcare worker and also was looking up her symptoms online and realized that having black stool is not normal. This made her realize that she has occasionally felt nausea and dizziness over the last few months as well. She takes hormone replacement therapy, iron supplementation, no other medications. She denies abdominal pain, NSAID use, fevers, chills, dysuria, concern. Related Data Home Medications ?Medication ?Instructions ?Recorded ?Confirmed [id number] carb-vit K 1 tab PO DAILY 06/14/18 06/04/25 18 mg iron-400 mcg-500 mg tablet (Women's Multivitamin) Allergies Allergy/AdvReac Type Severity Reaction Status Date / Time No Known Drug Allergies Allergy Verified 06/04/25 16:53 Review of Systems <Oly Jordan PA-C - Last Filed: 08/25/25 18:16> Review of Systems ROS Unobtainable: All systems reviewed & are unremarkable except as noted in HPI and below Patient History <Oly Jordan PA-C - Last Filed: 08/25/25 18:16> Medical History Elevated prolactin level Galactorrhea Headache Cyst of left breast Weight gain finding Pelvic cramping Preventative health care Rosacea, acne Anxiety associated with depression Major depression Surgical History [place] teeth extracted Anesthesia History of section (11/08/13) History of section (08/09/11) Family History Father No problems noted. Mother Hypertension Brother No problems noted. Sister No problems noted. Sister No problems noted. Grandfather Diabetes mellitus Heart disease Hypertension Hyperlipidemia Grandmother Stroke Grandfather No problems noted. Grandmother No problems noted. Social History marital status: number of children: 2 household members: spouse and children caregiver/support person: No housing: house pets and animals: Yes Tobacco: How many years used: 20 quit status: considering quitting second hand exposure: No alcohol intake: current substance use type: does not use Exam <Oly Jordan PA-C - Last Filed: 08/25/25 18:16> Narrative Exam Narrative: GENERAL: 45 year old patient appears stated age. Well-developed patient, in no acute distress. HEAD: Atraumatic. Normocephalic. EYES: No scleral icterus. No injection or drainage. ENT: Nose without bleeding, purulent drainage. Throat without erythema, tonsillar hypertrophy or exudate. Airway patent. NECK: Trachea midline. Cervical ROM intact. CARDIOVASCULAR: Regular rate and rhythm. RESPIRATORY: ?Nonlabored respirations. ?Speaking in clear, full sentences. ?Clear to auscultation. Breath sounds equal bilaterally. No wheezes, rales, or rhonchi. ? GASTROINTESTINAL: Abdomen soft, non-tender, nondistended. Normal external rectal exam, very scant brown stool on glove. Hemoccult negative. EXTREMITIES: No LE edema. NEURO: AOx3. ?Clear speech. ?Moves all 4 extremities appropriately. SKIN: No rash or erythema of visible areas Initial Vital Signs Initial Vital Signs: Vital Signs Temperature 98.7 F 08/25/25 14:14 Pulse Rate 89 08/25/25 14:14 Respiratory Rate 16 08/25/25 14:14 Blood Pressure 140/94 H 08/25/25 14:14 Pulse Oximetry 100 08/25/25 14:14 Oxygen Delivery Method Room Air 08/25/25 14:14 <Suzie Downs MD - Last Filed: 08/27/25 00:58> Initial Vital Signs Initial Vital Signs: Vital Signs Temperature 98.7 F 08/25/25 14:14 Pulse Rate 89 08/25/25 14:14 Respiratory Rate 16 08/25/25 14:14 Blood Pressure 140/94 H 08/25/25 14:14 Pulse Oximetry 100 08/25/25 14:14 Oxygen Delivery Method Room Air 08/25/25 14:14 Course <Oly Jordan PA-C - Last Filed: 08/25/25 18:16> Orders Ordered: ED Orders 08/25/25 14:44 Complete Blood Count AUTO DIFF Stat Comprehensive Metabolic Panel Stat Lipase Stat Vital Signs Vital signs: Vital Signs - 8 hr 08/25/25 14:14 08/25/25 16:20 Temperature 98.7 F Pulse Rate 89 84 Respiratory Rate 16 16 Blood Pressure 140/94 H 138/80 Pulse Oximetry 100 97 Oxygen Delivery Method Room Air Room Air <Suize Downs MD - Last Filed: 08/27/25 00:58> Orders Ordered: ED Orders 08/25/25 14:44 Complete Blood Count AUTO DIFF Stat Comprehensive Metabolic Panel Stat Lipase Stat Vital Signs Vital signs: Vital Signs - 8 hr 08/25/25 14:14 08/25/25 16:20 Temperature 98.7 F Pulse Rate 89 84 Respiratory Rate 16 16 Blood Pressure 140/94 H 138/80 Pulse Oximetry 100 97 Oxygen Delivery Method Room Air Room Air MDM - GI Bleed <Oly Jordan PA-C - Last Filed: 08/25/25 18:16> Medical Records Attestation: I reviewed the patient's medical records. Lab Data 08/25/25 14:44 08/25/25 14:44 Labs: Lab Results 08/25/25 Range/Units 14:44 WBC 7.2 (4.5-11.0) X10^3/uL RBC 4.53 (4.0-5.2) X10^6/uL Hgb 13.9 (12.0-16.0) g/dL Hct 41.6 (36-46) % MCV 91.9 (80-100) fL MCH 30.7 (26-34) PG MCHC 33.4 (30-36) % RDW 13.7 (11.6-14.8) % Plt Count 212 (150-400) X10^3/uL Neut % (Auto) 61.5 (50-75) % Lymph % (Auto) 31.1 (25-40) % [place] % (Auto) 6.5 (3-14) % Eos % (Auto) 0.2 L (2-4) % Baso % (Auto) 0.7 (0-2) % Neut # (Auto) 4400 (1469-0620) /uL Lymph # (Auto) 2200 (6835-2616) /uL [place] # (Auto) 500 (0-900) /uL Eos # (Auto) 0 (0-450) /uL Baso # (Auto) 0 (0-100) /uL Sodium 138 (137-145) mmol/L Potassium 3.9 (3.4-5.1) mmol/L Chloride 106 (98-107) mmol/L Carbon Dioxide 23 (22-32) mmol/L BUN 11 (7-17) mg/dL Creatinine 0.86 (0.52-1.04) mg/dL Estimated GFR > 60 (>60) mL/min BUN/Creatinine Ratio 12.8 (6-22) Glucose 98 (70-99) mg/dL Calcium 9.4 (8.4-10.2) mg/dL Total Bilirubin 0.4 (0.2-1.3) mg/dL AST 26 (14-36) IU/L ALT 18 (<35) IU/L Alkaline Phosphatase 46 (38-126) U/L Total Protein 8.4 H (6.3-8.2) g/dL Albumin 4.9 (3.5-5.0) g/dL Globulin 3.5 (1.7-4.1) g/dL Albumin/Globulin Ratio 1.4 (1.0-2.8) Lipase 91 (23-300) U/L [facility] Narrative Medical decision making narrative: 45 year old female with no reported past medical history who presents to the emergency department for concern of a GI bleed. Differential diagnosis includes but isn't limited to melena versus dark stool from iron supplementation, electrolyte derangement, anemia, UGI bleed, gastritis, etc. On exam patient is in no acute distress, nontoxic appearing, vital signs appropriate. Abdomen is soft and nontender. Rectal exam did not reveal any gross blood, it is Hemoccult negative. Baseline labs obtained. No emergent imaging indicated at this time. Labs reveal normal WBC count 7.2, hemoglobin 13.9 hematocrit 41.6. Normal sodium 138, potassium 3.9, BUN 11 creatinine 0.86. Glucose 98. Normal LFTs. Normal lipase 91. Discussed results with the patient. I do suspect her dark stool is because of her iron supplementation as the stool change and the supplementation started at the same time however I did encourage the patient to follow up with PCP for colonoscopy and further evaluation. Discussed ER return precautions. Patient was understanding of all information is agreeable with the plan. She is stable for discharge home, all VS WNL. <Suzie Downs MD - Last Filed: 08/27/25 00:58> Lab Data Labs: Lab Results 08/25/25 Range/Units 14:44 WBC 7.2 (4.5-11.0) X10^3/uL RBC 4.53 (4.0-5.2) X10^6/uL Hgb 13.9 (12.0-16.0) g/dL Hct 41.6 (36-46) % MCV 91.9 (80-100) fL MCH 30.7 (26-34) PG MCHC 33.4 (30-36) % RDW 13.7 (11.6-14.8) % Plt Count 212 (150-400) X10^3/uL Neut % (Auto) 61.5 (50-75) % Lymph % (Auto) 31.1 (25-40) % [place] % (Auto) 6.5 (3-14) % Eos % (Auto) 0.2 L (2-4) % Baso % (Auto) 0.7 (0-2) % Neut # (Auto) 4400 (4783-7049) /uL Lymph # (Auto) 2200 (9151-4228) /uL [place] # (Auto) 500 (0-900) /uL Eos # (Auto) 0 (0-450) /uL Baso # (Auto) 0 (0-100) /uL Sodium 138 (137-145) mmol/L Potassium 3.9 (3.4-5.1) mmol/L Chloride 106 (98-107) mmol/L Carbon Dioxide 23 (22-32) mmol/L BUN 11 (7-17) mg/dL Creatinine 0.86 (0.52-1.04) mg/dL Estimated GFR > 60 (>60) mL/min BUN/Creatinine Ratio 12.8 (6-22) Glucose 98 (70-99) mg/dL Calcium 9.4 (8.4-10.2) mg/dL Total Bilirubin 0.4 (0.2-1.3) mg/dL AST 26 (14-36) IU/L ALT 18 (<35) IU/L Alkaline Phosphatase 46 (38-126) U/L Total Protein 8.4 H (6.3-8.2) g/dL Albumin 4.9 (3.5-5.0) g/dL Globulin 3.5 (1.7-4.1) g/dL Albumin/Globulin Ratio 1.4 (1.0-2.8) Lipase 91 (23-300) U/L Discharge Plan Departure Patient Disposition: Home Clinical Impression: Dark stools, Nausea Instructions: DI for Nausea -- Adult, Iron Supplements Activity Restrictions/Additional Instructions: Dear Ms. Back, Thank you for coming to the emergency department. Today you were evaluated for black stool, dizziness and nausea. Your stool Hemoccult test today was negative for blood. Your complete blood cell count was also reassuring and did not reveal any anemia or low blood levels. At this time I would like you to follow up with your primary care doctor for further evaluation of your symptoms, I do believe you would benefit from having a colonoscopy. Please return to the ER immediately if you develop any new or worsening symptoms, severe pain or any other concerns. Please follow up with your primary care doctor within the next 2-3 days for ER follow-up. (If you do not have a PCP you can call [phone]. ?to schedule an appointment with an [facility] Primary Care Provider) IF YOU DEVELOP ANY NEW OR WORSENING SYMPTOMS, RETURN TO THE ER! Please read the attached instructions, they highlight more specific treatments and interventions for you at home. Thank you for letting me participate in your care, Oly Jordan PA-C Prescriptions: No Action hu-[id number]-Ca carb-vit K [Women's Multivitamin] 18 mg iron-400 mcg-500 mg tablet 1 tab PO DAILY Referrals: Barber Valdovinos DO [Primary Care Provider, Family Practice] Stand Alone Forms: Patient Portal/API ED Sign-out <Suzie Downs MD - Last Filed: 08/27/25 00:58> Cosign ED Attending Cosaustynature Attestation: I reviewed the documentation entered by the physician licensed loan officer assistant. I was not directly involved in this patient?s care, but I reviewed the documented history, examination findings, assessment, and plan with the PA. I agree with the evaluation and plan as documented. Suzie Downs MD Emergency Medicine Attending
[2025-08-25 14:49] LABS: Add Manual Diff / Slide Review NO; Hematocrit 41.6 % (36-46); Hemoglobin 13.9 g/dL (12.0-16.0); Lymphocytes Absolute Auto 2200 /uL (1100-4500); Mean Corpuscular HGB Conc 33.4 % (30-36); Mean Corpuscular Hemoglobin 30.7 PG (26-34); Mean Corpuscular Volume 91.9 fL (80-100); Platelet Count 212 X10^3/uL (150-400)
[2025-08-25 15:03] LABS: Alanine Aminotransferase 18 IU/L (<35); Albumin 4.9 g/dL (3.5-5.0); Albumin Globulin Ratio 1.4 (1.0-2.8); Alkaline Phosphatase 46 U/L (38-126); Blood Urea Nitrogen 11 mg/dL (7-17); Calcium 9.4 mg/dL (8.4-10.2); Carbon Dioxide 23 mmol/L (22-32); Chloride 106 mmol/L (98-107); Estimated Glomerular Filt Rate > 60 mL/min (>60); Globulin 3.5 g/dL (1.7-4.1); Glucose 98 mg/dL (70-99); HEMOLYSIS < 15 (0-50); Lipase 91 U/L (23-300); Potassium 3.9 mmol/L (3.4-5.1); Sodium 138 mmol/L (137-145); Total Protein 8.4 g/dL (6.3-8.2)
[2025-08-25 16:20] VITALS: BP 138/80; PULSE 84; RESP 16; O2SAT 97
== END 2025-08-25 16:20 | disposition home or self-care (01) ==
PROVIDERS: Emergency Provider Physician Assistant; PCP Family Medicine
DX: R42 Dizziness and giddiness (principal); R11.0 Nausea; R19.5 Other fecal abnormalities
CPT/HCPCS: 36415; 80053; 83690; 85025; 99283